=== PATIENT | female | born 1960 | race Caucasian/White ===

== ENCOUNTER 2024-08-14 14:41 | Outpatient (CLI) | payer BC ==
[2024-08-14 18:03] LABS: Anion Gap 21 mmol/L (10-20); BUN (Urea Nitrogen) 9 mg/dL (9.8-20.1); Calc. Creatinine Clearance 0 mL/min (70-130); Calcium 9.8 mg/dL (7.8-10.44); Carbon Dioxide 22 mmol/L (23-31); Chloride 104 mmol/L (98-107); Estimated GFR 92; Glucose 128 mg/dL (80-115); Potassium 3.7 mmol/L (3.5-5.1); Sodium 143 mmol/L (136-145)
[2024-08-14 18:24] LABS: #Basophils 0.07 10x3/uL (0.0-0.2); #Eosinophils 0.22 10x3/uL (0.0-0.5); #Monocytes 0.63 10x3/uL (0.0-1.1); %Basophils 0.9 % (0.0-2.0); %Eosinophils 2.8 % (0.0-6.0); %Lymphocytes 24.5 % (18.0-47.0); %Monocytes 8.1 % (0.0-10.0); %Neutrophils 63.3 % (40.0-75.0); Hematocrit 35.5 % (34.9-44.5); Hemoglobin 10.1 g/dL (12.0-15.5); Mean Corpuscular HGB CONC 28.5 g/dL (32.0-36.0); Mean Corpuscular Hemoglobin 22.2 pg (27.0-33.0); Mean Corpuscular Volume 78.2 fL (81.6-98.3); Mean Platelet Volume 9.6 fL (7.4-10.4); Platelet Count 330 10x3/uL (150-450); Red Blood Cell (RBC) Count 4.54 10x6/uL (3.90-5.03); White Blood Cell (WBC) Count 7.75 10x3/uL (3.5-10.5)
[2024-08-14 22:16] LABS: Hemoglobin A1c 5.7 % (4.0-6.0)
== END 2024-08-14 14:42 | disposition home or self-care (01) ==
LOC: CSHLAB 14:41
PROVIDERS: ATTEND Specialist
DX: Z01.818 Encounter for other preprocedural examination (principal); C18.0 Malignant neoplasm of cecum
CPT/HCPCS: 71046; 80048; 83036; 85025; 93005; 93010

== ENCOUNTER 2024-08-14 15:00 | Inpatient (IN) | payer BC ==
[2024-08-14 15:04] VITALS: BMI 27.4
[2024-08-19] MEDS ORDERED: Lidocaine 1% w/Epinephrine 1:200K 30 ML VIAL ONE (06:34)
[2024-08-19] MEDS ORDERED: Indocyanine Green 25 MG/10 ML VIAL ONE (06:34)
[2024-08-19] MEDS ORDERED: Bupivacaine/Epinephrine 0.25% 30 ML VIAL ONE ×2 (06:34→06:56)
[2024-08-19] MEDS ORDERED: Midazolam HCl 2 mg/2 ml Vial ONE (06:56)
[2024-08-19] MEDS ORDERED: Scopolamine 1 mg/72 hour Patch ONE (06:57)
[2024-08-19] MEDS ORDERED: Acetaminophen 500 MG TAB ONE (07:02)
[2024-08-19] MEDS ORDERED: Ketorolac Tromethamine 30 MG (1 mL) VIAL ONE (07:02)
[2024-08-19] MEDS ORDERED: Lidocaine 1% PF 5 ML VIAL ONE (07:14)
[2024-08-19] MEDS ORDERED: PROPOFOL 20 ML ONE (07:14)
[2024-08-19] MEDS ORDERED: Ondansetron PF 4 MG/2 ML Vial ONE (07:14)
[2024-08-19] MEDS ORDERED: SUGAMMADEX SODIUM 200 MG/2 ML VIAL ONE (07:14)
[2024-08-19] MEDS ORDERED: Dexamethasone 20 MG/5 ML VIAL ONE (07:14)
[2024-08-19] MEDS ORDERED: Rocuronium Bromide 10 MG/ML (10ML VIAL) ONE (07:14)
[2024-08-19] MEDS ORDERED: Fentanyl 250 MCG/5 ML VIAL ONE (07:15)
[2024-08-19] MEDS ORDERED: ceFOXitin 1 GM VIAL ONE ×2 (07:17→09:26)
[2024-08-19] MEDS ORDERED: PHENYLEPHRINE-NS 100 MCG/ML 10 ML SYRINGE ONE (07:41)
[2024-08-19] MEDS ORDERED: ePHEDrine Sulfate 50 MG/10 ML VIAL ONE (09:20)
[2024-08-19] MEDS ORDERED: Vasopressin 20 UNITS/ML VIAL ONE (09:54)
[2024-08-19] MEDS ORDERED: Ipratropium/Albuterol 3 ML NEB NEB PRN (10:36)
[2024-08-19] MEDS ORDERED: Morphine 4 MG/ML VIAL SLOW IVP PRN (10:36)
[2024-08-19] MEDS ORDERED: hydrALAZINE 20 MG/ML VIAL SLOW IVP PRN (10:36)
[2024-08-19] MEDS ORDERED: Promethazine HCl 25 MG/ML VIAL IM PRN (10:36)
[2024-08-19] MEDS: Amlodipine 10 MG TAB PO SCH (12:35)
[2024-08-19] MEDS: D5 1/2 NS w/20 mEq KCL 1,000 ML IV SCH (12:36)
[2024-08-19] MEDS: Lactated Ringer's 1,000 ML IV SCH (12:37)
[2024-08-19] MEDS: Ketorolac Tromethamine 30 MG (1 mL) VIAL IVP SCH (12:51)
[2024-08-19] MEDS: Lisinopril 20 MG TAB PO SCH (12:55)
[2024-08-19] MEDS: Levothyroxine Sodium 100 MCG TAB PO SCH (12:55)
[2024-08-19] MEDS: Hydrochlorothiazide 25 MG TAB PO SCH (12:57)
[2024-08-19] MEDS: Famotidine/PF 20 mg/2ml Vial SLOW IVP SCH ×2 (12:58→21:46)
[2024-08-19] MEDS: Alogliptin 6.25 MG TAB PO SCH ×2 (14:22→20:30)
[2024-08-19] MEDS: metFORMIN 500 MG TAB PO SCH ×2 (14:22→20:30)
[2024-08-19] MEDS: Dapagliflozin Propanediol 10 MG TAB PO SCH (14:24)
[2024-08-19] MEDS ORDERED: Dextrose 5% in Water 1,000 ML IV PRN (15:12)
[2024-08-19] MEDS ORDERED: Dextrose 50% Abboject 50 ML SYRINGE SLOW IVP PRN (15:12)
[2024-08-19] MEDS ORDERED: Glucagon 1 MG/ML KIT IM PRN (15:12)
[2024-08-19] MEDS: Insulin Regular, Human 100 UNIT/ML 10 ML VIAL SC PRN (17:32)
[2024-08-19] MEDS: Enoxaparin 40 MG (0.4 mL) SYRINGE SC SCH (20:29)
[2024-08-19] MEDS: Famotidine 20 MG TAB PO SCH (20:29)
[2024-08-19] MEDS: Morphine 2 MG/ML VIAL SLOW IVP PRN (20:30)
[2024-08-19] MEDS: Ondansetron PF 4 MG/2 ML Vial IVP PRN (20:31)
[2024-08-20] MEDS: Acetaminophen 325 MG TAB PO PRN (03:44)
[2024-08-20 04:40] LABS: Anion Gap 15 mmol/L (10-20); BUN (Urea Nitrogen) 8 mg/dL (9.8-20.1); Calc. Creatinine Clearance 99 mL/min (70-130); Calcium 9.4 mg/dL (7.8-10.44); Carbon Dioxide 21 mmol/L (23-31); Chloride 107 mmol/L (98-107); Estimated GFR 97; Glucose 147 mg/dL (80-115); Sodium 139 mmol/L (136-145)
[2024-08-20 04:48] LABS: #Basophils Less than 0.03 10x3/uL (0.0-0.2); #Eosinophils Less than 0.03 10x3/uL (0.0-0.5); #Neutrophils 10.28 10x3/uL (1.5-8.4); %Basophils 0.1 % (0.0-2.0); %Eosinophils 0.1 % (0.0-6.0); %Monocytes 6.2 % (0.0-10.0); %Neutrophils 80.2 % (40.0-75.0); Hematocrit 30.2 % (34.9-44.5); Hemoglobin 8.5 g/dL (12.0-15.5); Mean Corpuscular HGB CONC 28.1 g/dL (32.0-36.0); Mean Corpuscular Hemoglobin 22.8 pg (27.0-33.0); Mean Corpuscular Volume 81.2 fL (81.6-98.3); Mean Platelet Volume 9.5 fL (7.4-10.4); Platelet Count 264 10x3/uL (150-450); RBC Distribution Width 23.6 % (11.5-14.5); Red Blood Cell (RBC) Count 3.72 10x6/uL (3.90-5.03); White Blood Cell (WBC) Count 12.81 10x3/uL (3.5-10.5)
[2024-08-20] MEDS: Levothyroxine Sodium 100 MCG TAB PO SCH (05:21)
[2024-08-20 05:29] LABS: Anisocytosis SLIGHT = 6-15 cells (100X) (0-5/hpf); Hypochromia SLIGHT = 6-15 cells (100X) (0-5/hpf); Microcytosis SLIGHT = 6-15 cells (100X) (0-5/hpf); Ovalocytes SLIGHT = 2-5 cells (100X) (0-1/hpf); Platelet Adequacy Comment Appears Adequate; Polychromasia SLIGHT = 2-3 cells (100X) (0-2/hpf)
[2024-08-20] MEDS: Lisinopril 20 MG TAB PO SCH (09:22)
[2024-08-20] MEDS: Dapagliflozin Propanediol 10 MG TAB PO SCH (09:25)
[2024-08-20] MEDS: Amlodipine 10 MG TAB PO SCH (09:26)
[2024-08-20] MEDS: Hydrochlorothiazide 25 MG TAB PO SCH (09:26)
[2024-08-20] MEDS: Lactated Ringer's 1,000 ML IV SCH (12:03)
[2024-08-20] MEDS: diphenhydrAMINE 30 GM TUBE TOP PRN (21:39)
[2024-08-21 05:34] LABS: #Basophils 0.05 10x3/uL (0.0-0.2); #Eosinophils 0.08 10x3/uL (0.0-0.5); #Neutrophils 5.59 10x3/uL (1.5-8.4); %Basophils 0.6 % (0.0-2.0); %Eosinophils 0.9 % (0.0-6.0); %Monocytes 7.7 % (0.0-10.0); %Neutrophils 61.5 % (40.0-75.0); Hematocrit 29.3 % (34.9-44.5); Hemoglobin 8.7 g/dL (12.0-15.5); Mean Corpuscular HGB CONC 29.7 g/dL (32.0-36.0); Mean Corpuscular Hemoglobin 24.1 pg (27.0-33.0); Mean Corpuscular Volume 81.2 fL (81.6-98.3); Mean Platelet Volume 9.6 fL (7.4-10.4); Platelet Count 239 10x3/uL (150-450); Red Blood Cell (RBC) Count 3.61 10x6/uL (3.90-5.03); White Blood Cell (WBC) Count 9.08 10x3/uL (3.5-10.5)
[2024-08-21 08:18] VITALS: BP 137/71; TEMP 98.1
== END 2024-08-21 09:30 | disposition home or self-care (01) | DRG 331 ==
LOC: CSHTELE 08-19 05:36
PROVIDERS: ADMIT Specialist; ATTEND Specialist
PROC: 0DBF0ZZ Excision of Right Large Intestine, Open Approach (ICD-10-PCS; principal; 2024-08-19)
PROC: 8E0W0CZ Robotic Assisted Procedure of Trunk Region, Open Approach (ICD-10-PCS; 2024-08-19)
DX: C18.0 Malignant neoplasm of cecum (principal); I10 Essential (primary) hypertension; E78.5 Hyperlipidemia, unspecified; D64.9 Anemia, unspecified; E89.0 Postprocedural hypothyroidism; Z79.890 Hormone replacement therapy; Z79.82 Long term (current) use of aspirin; Z79.899 Other long term (current) drug therapy
CPT/HCPCS: 36415; 36416; 80048; 85025; 88309; A4333; J0694; J1100; J1650; J1815; J1885; J2250; J2272; J2405; J2704; J3010; J3480; J3490; J7120; S2900